=== PATIENT | female | born 1985 | race Caucasian/White ===

== ENCOUNTER 2018-09-21 05:26 | Emergency (ER) | payer OTHER ==
[2015-07-10 13:32] VITALS: Wt 104.3 kg
[~2018-09-21 05:26] MED LIST: IBUP800T37 PO; METH4TAB66 PO
[2018-09-21] MEDS ORDERED: NS(*) 0.9% 1000 ML BAG 1,000 ML IV ONE (05:41)
--- NOTE | 2018-09-21 05:41 | ER Report ---
History and Physical Time Seen By MD: 05:29 (RONNY ALLEN DO) HPI/ROS CHIEF COMPLAINT: Epigastric pain HISTORY OF PRESENT ILLNESS: 32-year-old female presents ambulatory to the ER complaining of severe epigastric pain with radiation to her back and her right shoulder since 2 AM. She notes that it was 8 out of 10. Patient was seen at urgent care 1 year ago with a similar pain and told she had gastroesophageal reflux disease. She was advised to try Zantac which she did without improvement. Patient's been having this pain intermittently for the last 2 years, usually occurs in the early a.m. hours, lasting several hours. He is a resolve spontaneously without treatment. Patient has vomited multiple times this morning prompted her to come to the ER. It is in from a 8/10 to a 6/10. Patient notes no alleviating or triggering factors. She notes nothing that seems to relieve it except waiting out. REVIEW OF SYSTEMS: Respiratory: No cough, no dyspnea. Cardiovascular: No chest pain, no palpitations. Gastrointestinal: As above Musculoskeletal: No back pain. (RONNY ALLEN DO) Allergies: Coded Allergies: No Known Drug Allergies (Unverified , 09/21/18) Home Meds Active Scripts Dicyclomine Hcl (DICYCLOMINE HCL) 20 Mg Tablet, 20 MG PO QID PRN for pain for 10 Days Prov:ENRIQUE COLE MD 09/21/18 Ondansetron (ZOFRAN ODT) 4 Mg Tab.rapdis, 4 MG PO Q6H PRN for NAUSEA/VOMITING, #20 TAB.CIARAN 0 Refills Prov:ENRIQUE COLE MD 09/21/18 Discontinued Scripts Methylprednisolone (METHYLPREDNISOLONE) 4 Mg Tab.ds.pk, 4 MG PO DIRECTED, #1 PACK Prov:BENEDICTO HENLEY JR, MD 10/08/17 Ibuprofen (IBUPROFEN) 800 Mg Tab, 800 MG PO Q8H PRN for PAIN, #30 TAB 0 Refills Prov:ARTHUR ODELL MD 07/12/15 Past Medical/Surgical History 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 (RONNY ALLEN DO) Reviewed Nurses Notes: Yes Old Medical Records Reviewed: Yes (RONNY ALLEN DO) Hx Smoking: No Smoking Status: Never Smoker Exposure to Second Hand Smoke?: No (RONNY ALLEN DO) Constitutional Vital Sign - Last 24 Hours 09/21/18 09/21/18 09/21/18 09/21/18 05:30 05:38 05:50 06:18 Temp 97.1 Pulse 64 Resp 16 B/P (MAP) 140/107 140/107 (118) 143/99 (114) Pulse Ox 95 O2 Delivery Room Air O2 Flow Rate 2.0 09/21/18 09/21/18 09/21/18 07:00 07:30 08:00 Pulse 66 53 68 Pulse Ox 99 100 98 Intake and Output 09/20/18 09/20/18 09/21/18 15:00 23:00 07:00 Intake Total 1000 ml Balance 1000 ml (ENRIQUE COLE MD) Physical Exam Vital signs stable, afebrile, pulse ox normal General Appearance: The patient is alert, has no immediate need for airway protection and no current signs of toxicity. Moderate distress Eyes: Pupils equal and round no injection. Respiratory: Chest is non tender, lungs are clear to auscultation. Cardiac: regular rate and rhythm Gastrointestinal: Abdomen is soft, moderate epigastric tenderness, no masses, bowel sounds normal. Musculoskeletal: Neck: Neck is supple and non tender. Extremities have full range of motion and are non tender. Skin: No rashes or lesions. DIFFERENTIAL DIAGNOSIS: After history and physical exam differential diagnosis was considered for abdominal pain including but not limited to appendicitis, cholecystitis, gastritis and urinary tract infection. (RONNY ALLEN DO) Medical Decision Making Data Points Result Diagram: 09/21/18 0600 09/21/18 0600 Laboratory Hematology Test 09/21/18 00:00 09/21/18 05:30 09/21/18 06:00 Urine HCG, Qualitative Negative (NEGATIVE) Urine Color Red Urine Clarity Cloudy Urine pH 5.0 pH (4.8-9.5) Urine Specific [place] 1.021 Urine Protein 30 mg/dL (NEGATIVE) Urine Glucose (UA) Negative mg/dL (NEGATIVE) Urine Ketones Negative mg/dL (NEGATIVE) Urine Blood Small (NEGATIVE) Urine Nitrite Negative (NEGATIVE) Urine Bilirubin Negative (NEGATIVE) Urine Urobilinogen Negative mg/dL (0.2-1.9) Urine Leukocyte Esterase Moderate (NEGATIVE) Urine RBC 6 /HPF (0-2/HPF) Urine WBC 37 /HPF (0-5/HPF) Urine Squamous Epithelial Cells Many /LPF (</=FEW) Urine Transitional Epithelial Cells Few /LPF (NONE-FEW) Urine Bacteria Few /HPF (NONE-FEW) Urine Hyaline Casts Few /LPF (NONE-FEW) Urine Mucus Few /HPF (NONE-FEW) Red Blood Count 5.49 M/uL (4.17-5.56) Mean Corpuscular Volume 84.1 fL (80.0-96.0) Mean Corpuscular Hemoglobin 28.3 pg (26.0-33.0) Mean Corpuscular Hemoglobin Concent 33.7 g/dL (32.0-36.0) Red Cell Distribution Width 13.5 % (11.5-14.5) Mean Platelet Volume 8.6 fL (7.2-11.1) Neutrophils (%) (Auto) 68.0 % (39.4-72.5) Lymphocytes (%) (Auto) 21.8 % (17.6-49.6) Monocytes (%) (Auto) 6.8 % (4.1-12.4) Eosinophils (%) (Auto) 2.8 % (0.4-6.7) Basophils (%) (Auto) 0.6 % (0.3-1.4) Nucleated RBC Relative Count (auto) 0.0 /100WBC Neutrophils # (Auto) 6.0 K/uL (2.0-7.4) Lymphocytes # (Auto) 1.9 K/uL (1.3-3.6) Monocytes # (Auto) 0.6 K/uL (0.3-1.0) Eosinophils # (Auto) 0.2 K/uL (0.0-0.5) Basophils # (Auto) 0.1 K/uL (0.0-0.1) Nucleated RBC Absolute Count (auto) 0.00 K/uL Sodium Level 141 mmol/L (137-145) Potassium Level 3.8 mmol/L (3.5-5.0) Chloride Level 104 mmol/L (98-107) Carbon Dioxide Level 26 mmol/L (22-31) Blood Urea Nitrogen 13 mg/dl (7-18) Creatinine 0.70 mg/dl (0.52-1.04) Glomerular Filtration Rate Calc > 60.0 Random Glucose 113 mg/dl (75-110) Calcium Level 9.9 mg/dl (8.4-10.2) Total Bilirubin 0.9 mg/dl (0.2-1.3) Aspartate Amino Transf (AST/SGOT) 29 U/L (0-35) Alanine Aminotransferase (ALT/SGPT) 27 U/L (0-56) Alkaline Phosphatase 90 U/L (0-126) Total Protein 8.6 g/dl (6.3-8.2) Albumin 4.5 g/dl (3.5-5.0) Amylase Level 73 U/L (0-110) Lipase 117 U/L (23-300) Chemistry Test 09/21/18 00:00 09/21/18 05:30 09/21/18 06:00 Urine HCG, Qualitative Negative (NEGATIVE) Urine Color Red Urine Clarity Cloudy Urine pH 5.0 pH (4.8-9.5) Urine Specific [place] 1.021 Urine Protein 30 mg/dL (NEGATIVE) Urine Glucose (UA) Negative mg/dL (NEGATIVE) Urine Ketones Negative mg/dL (NEGATIVE) Urine Blood Small (NEGATIVE) Urine Nitrite Negative (NEGATIVE) Urine Bilirubin Negative (NEGATIVE) Urine Urobilinogen Negative mg/dL (0.2-1.9) Urine Leukocyte Esterase Moderate (NEGATIVE) Urine RBC 6 /HPF (0-2/HPF) Urine WBC 37 /HPF (0-5/HPF) Urine Squamous Epithelial Cells Many /LPF (</=FEW) Urine Transitional Epithelial Cells Few /LPF (NONE-FEW) Urine Bacteria Few /HPF (NONE-FEW) Urine Hyaline Casts Few /LPF (NONE-FEW) Urine Mucus Few /HPF (NONE-FEW) White Blood Count 8.8 k/uL (4.5-11.0) Red Blood Count 5.49 M/uL (4.17-5.56) Hemoglobin 15.5 g/dL (12.0-16.0) Hematocrit 46.2 % (34.0-47.0) Mean Corpuscular Volume 84.1 fL (80.0-96.0) Mean Corpuscular Hemoglobin 28.3 pg (26.0-33.0) Mean Corpuscular Hemoglobin Concent 33.7 g/dL (32.0-36.0) Red Cell Distribution Width 13.5 % (11.5-14.5) Platelet Count 343 K/uL (150-450) Mean Platelet Volume 8.6 fL (7.2-11.1) Neutrophils (%) (Auto) 68.0 % (39.4-72.5) Lymphocytes (%) (Auto) 21.8 % (17.6-49.6) Monocytes (%) (Auto) 6.8 % (4.1-12.4) Eosinophils (%) (Auto) 2.8 % (0.4-6.7) Basophils (%) (Auto) 0.6 % (0.3-1.4) Nucleated RBC Relative Count (auto) 0.0 /100WBC Neutrophils # (Auto) 6.0 K/uL (2.0-7.4) Lymphocytes # (Auto) 1.9 K/uL (1.3-3.6) Monocytes # (Auto) 0.6 K/uL (0.3-1.0) Eosinophils # (Auto) 0.2 K/uL (0.0-0.5) Basophils # (Auto) 0.1 K/uL (0.0-0.1) Nucleated RBC Absolute Count (auto) 0.00 K/uL Glomerular Filtration Rate Calc > 60.0 Calcium Level 9.9 mg/dl (8.4-10.2) Total Bilirubin 0.9 mg/dl (0.2-1.3) Aspartate Amino Transf (AST/SGOT) 29 U/L (0-35) Alanine Aminotransferase (ALT/SGPT) 27 U/L (0-56) Alkaline Phosphatase 90 U/L (0-126) Total Protein 8.6 g/dl (6.3-8.2) Albumin 4.5 g/dl (3.5-5.0) Amylase Level 73 U/L (0-110) Lipase 117 U/L (23-300) Urinalysis Test 09/21/18 00:00 09/21/18 05:30 Urine HCG, Qualitative Negative (NEGATIVE) Urine Color Red Urine Clarity Cloudy Urine pH 5.0 pH (4.8-9.5) Urine Specific [place] 1.021 Urine Protein 30 mg/dL (NEGATIVE) Urine Glucose (UA) Negative mg/dL (NEGATIVE) Urine Ketones Negative mg/dL (NEGATIVE) Urine Blood Small (NEGATIVE) Urine Nitrite Negative (NEGATIVE) Urine Bilirubin Negative (NEGATIVE) Urine Urobilinogen Negative mg/dL (0.2-1.9) Urine Leukocyte Esterase Moderate (NEGATIVE) Urine RBC 6 /HPF (0-2/HPF) Urine WBC 37 /HPF (0-5/HPF) Urine Squamous Epithelial Cells Many /LPF (</=FEW) Urine Transitional Epithelial Cells Few /LPF (NONE-FEW) Urine Bacteria Few /HPF (NONE-FEW) Urine Hyaline Casts Few /LPF (NONE-FEW) Urine Mucus Few /HPF (NONE-FEW) (ENRIQUE COLE MD) EKG/Imaging Imaging Results: Ultrasound of the gallbladder was obtained. The results of the study are Technique: GALLBLADDER HISTORY: RUQ pain to back r/o GB ds Comparison: None Technique: Multiple grayscale, color and Doppler sonographic images were obtained for an ultrasound of the right upper quadrant. Findings: The liver measures 14.3 cm. Overall, there is increased echotexture throughout the hepatic parenchyma. There is normal hepatopedal portal venous flow. Gallbladder wall thickness is 2 mm with calculi within the gallbladder lumen. Negative sonographic Vu's sign reported by the technologist. Common duct measures 4 mm in maximum diameter with no evidence of shadowing stone. Imaged portions of the pancreas are unremarkable. Abdominal aorta and IVC are patent and unremarkable. The right kidney is normal in size, contour, and echotexture measuring 10.5 cm x 4.6 cm x 6.0 cm. IMPRESSION: 1. Cholelithiasis without sonographic evidence of acute cholecystitis. 2. Increased echotexture throughout the hepatic parenchyma most commonly seen with hepatic steatosis. The study was read by the radiologist. I viewed the images myself on the PACS system. (RONNY ALLEN DO) ED Course/Re-evaluation Clinical Indication for ER IV: Hydration, IV Access ED Course Patient was admitted to an examination room. H&P was done. The differential diagnoses was considered. Patient was treated for her pain and hydrated. Diagnostic studies show pyuria. A gallbladder ultrasound was ordered. Care was turned over to at shift change. Decision to Disposition Date: Sep 21, 2018 Decision to Disposition Time: 08:08 (RONNY ALLEN DO) ED Course Presents the emergency department with nausea and right upper quadrant pain. Symptom-free after hours in the emergency department. Labs including LFTs and lipase within normal limits. No fever and no leukocytosis. Right upper quadrant ultrasound consistent with cholelithiasis. No evidence of cholecystitis or choledocholithiasis. We will give her a prescription for Bentyl and Zofran. We will also have her follow-up with Dr. Martinez to discuss possibility of elective cholecystectomy. Decision to Disposition Date: Sep 21, 2018 Decision to Disposition Time: 08:55 (ENRIQUE COLE MD) Depart Departure Latest Vital Signs Vital Signs Date Time Temp Pulse Resp B/P (MAP) Pulse Ox O2 Delivery O2 Flow Rate FiO2 09/21/18 08:00 68 98 09/21/18 06:18 2.0 09/21/18 05:50 143/99 (114) 09/21/18 05:30 97.1 16 Room Air (ENRIQUE COLE MD) Impression: Primary Impression: Cholelithiasis Condition: Improved Disposition: HOME OR SELF-CARE Referrals: SWATI ESTES MD New Scripts Dicyclomine Hcl (DICYCLOMINE HCL) 20 Mg Tablet 20 MG PO QID PRN for pain for 10 Days Prov: ENRIQUE COLE MD 09/21/18 Ondansetron (ZOFRAN ODT) 4 Mg Tab.rapdis 4 MG PO Q6H PRN for NAUSEA/VOMITING, #20 TAB.CIARAN 0 Refills Prov: ENRIQUE COLE MD 09/21/18 Patient Instructions: Gallstones (ED) Problem Qualifiers Primary Impression: Cholelithiasis Cholelithiasis location: gallbladder Cholecystitis presence: without cholecystitis Biliary obstruction: without biliary obstruction Qualified Codes: K80.20 - Calculus of gallbladder without cholecystitis without obstruction RONNY ALLEN DO Sep 21, 2018 05:41 ENRIQUE COLE MD Sep 21, 2018 09:02
[2018-09-21] MEDS ORDERED: fentaNYL CITR 100 MCG/2 ML AMP IVP ONE (05:45)
[2018-09-21] MEDS ORDERED: ONDANSETRON 4 MG/2 ML VIAL IVP ONE (05:45)
[2018-09-21 05:50] VITALS: BP 143/99
[2018-09-21 06:24] LABS: PLATELET COUNT, AUTOMATED 343 K/uL (150-450)
[2018-09-21] MEDS ORDERED: MORPHINE 2 MG/ML SYR IVP ONE (06:25)
--- NOTE | 2018-09-21 08:04 | RADIOLOGY IMAGING REPORT ---
FACILITY: [facility] - [place] PATIENT NAME: Jayleen Corona : 1985 MR: [id number] V: [id number] EXAM DATE: ORDERING PHYSICIAN: RONNY ALLEN TECHNOLOGIST: Location: [facility] - [place] Patient: Jayleen Corona : 1985 Visit/Account:[id number] Date of Sevice: 09/21/2018 Technique: GALLBLADDER HISTORY: RUQ pain to back r/o GB ds Comparison: None Technique: Multiple grayscale, color and Doppler sonographic images were obtained for an ultrasound o f the right upper quadrant. Findings: The liver measures 14.3 cm. Overall, there is increased echotexture throughout the hepatic parenchyma . There is normal hepatopedal portal venous flow. Gallbladder wall thickness is 2 mm with calculi within the gallbladder lumen. Negative sonographic Mu rphy's sign reported by the technologist. Common duct measures 4 mm in maximum diameter with no evidence of shadowing stone. Imaged portions of the pancreas are unremarkable. Abdominal aorta and IVC are patent and unremarkable. The right kidney is normal in size, contour, and echotexture measuring 10.5 cm x 4.6 cm x 6.0 cm. IMPRESSION: 1. Cholelithiasis without sonographic evidence of acute cholecystitis. 2. Increased echotexture throughout the hepatic parenchyma most commonly seen with hepatic steatosis. Report Dictated By: Agapito Gallego DO at 09/21/2018 7:58 AM Report E-Signed By: Agapito Gallego DO at 09/21/2018 8:01 AM WSN:[id number]
[2018-09-21] MEDS ORDERED: ONDA4TAB PO (08:58)
[2018-09-21] MEDS ORDERED: DICY20TA70 PO (08:58)
== END 2018-09-21 09:08 | disposition home or self-care (01) ==
LOC: ER 05:38
DX: K80.20 Calculus of gallbladder without cholecystitis without obstruction (principal)
CPT/HCPCS: 76705; 81001; 81025; 82150; 83690; 85025; 96361; 96374; 96375; 99284; J2270; J2405; J3010; J7030; 82040; 82247; 82310; 82374; 82435; 82565; 82947; 84075; 84132; 84155; 84295; 84450; 84460; 84520

== ENCOUNTER 2018-09-23 03:28 | Observation (INO) | payer OTHER ==
[2018-09-23] VITALS (9 sets, daily range): BP systolic 100–139; BP diastolic 72–101
[~2018-09-23] VITALS: Ht 157.5 cm; Wt 104.3 kg
[~2018-09-23 03:28] MED LIST changes: +DICY20TA70 PO; +ONDA4TAB PO
--- NOTE | 2018-09-23 03:47 | ER Report ---
History and Physical Time Seen By MD: 03:47 Hx. of Stated Complaint: PT REPORTS PAIN MEDICINE FOR GALL STONES IS NOT WORKING. HPI/ROS CHIEF COMPLAINT: right upper abdominal pain, gallstones HISTORY OF PRESENT ILLNESS: This is a 32 year old female. She had been seen 2 days ago and diagnosed with gallstones and was home on pain medicines, but tonight the pain has worsened and the pain medicines are not effective. She is having right upper quadrant pain, radiation to epigastric/chest area and her back. Associated nausea and vomiting. She denies fevers or chills. No shortness of breath, although sometimes the pain takes her breath away. No problems with bowel or bladder. Allergies: Coded Allergies: No Known Drug Allergies (Unverified , 09/23/18) Home Meds Active Scripts Dicyclomine Hcl (DICYCLOMINE HCL) 20 Mg Tablet, 20 MG PO QID PRN for pain for 10 Days Prov:ENRIQUE COLE MD 09/21/18 Ondansetron (ZOFRAN ODT) 4 Mg Tab.rapdis, 4 MG PO Q6H PRN for NAUSEA/VOMITING, #20 TAB.CIARAN 0 Refills Prov:ENRIQUE COLE MD 09/21/18 Discontinued Scripts Methylprednisolone (METHYLPREDNISOLONE) 4 Mg Tab.ds.pk, 4 MG PO DIRECTED, #1 PACK Prov:BENEDICTO HENLEY JR, MD 10/08/17 Ibuprofen (IBUPROFEN) 800 Mg Tab, 800 MG PO Q8H PRN for PAIN, #30 TAB 0 Refills Prov:ARTHUR ODELL MD 07/12/15 Reviewed Nurses Notes: Yes Hx Smoking: No Smoking Status: Never Smoker Exposure to Second Hand Smoke?: No Hx Substance Use Disorder: No Hx Alcohol Use: No Constitutional Vital Sign - Last 24 Hours 09/23/18 09/23/18 09/23/18 09/23/18 03:36 03:37 03:43 04:18 Temp 97.6 Pulse 63 55 74 Resp 18 B/P (MAP) 139/103 (115) 139/103 Pulse Ox 95 92 92 O2 Delivery Room Air 09/23/18 09/23/18 09/23/18 04:30 04:33 04:38 Pulse 73 75 B/P (MAP) 132/83 (99) Pulse Ox 88 93 Physical Exam General Appearance: The patient is alert. Acute distress due to pain. Eyes: Pupils are equal, round. No pallor, injection or icterus. ENT: Mucous membranes are moist. Normal oral mucosa. Neck: Supple and non tender. Respiratory: Lungs are clear to auscultation. Cardiovascular: Regular rate and rhythm. No murmurs, gallops or rubs. Gastrointestinal: Abdomen is soft, but tender in right upper with Vu's sign. Nondistended, but obese abdomen. Guarding but without rebound. No masses or organomegaly. Normal active bowel sounds. No costovertebral angle tenderness with percussion. Neurological: Alert and oriented x3. No focal neurologic deficits Skin: Warm and dry. Musculoskeletal: No tenderness in palpation of the cervical, thoracic and lumbar spine. DIFFERENTIAL DIAGNOSIS: After history and physical exam, differential diagnosis was considered for gallstones with increased pain tonight, but no fever or chills. Will repeat labs and consider if we need repeat imaging. Medical Decision Making Data Points Result Diagram: 09/23/18 0343 09/23/18 0343 Laboratory Hematology Test 09/23/18 03:32 09/23/18 03:43 Urine Color Yellow Urine Clarity Slightly-cloudy Urine pH 7.0 pH (4.8-9.5) Urine Specific [place] 1.017 Urine Protein Negative mg/dL (NEGATIVE) Urine Glucose (UA) Negative mg/dL (NEGATIVE) Urine Ketones Negative mg/dL (NEGATIVE) Urine Blood Negative (NEGATIVE) Urine Nitrite Negative (NEGATIVE) Urine Bilirubin Negative (NEGATIVE) Urine Urobilinogen Negative mg/dL (0.2-1.9) Urine Leukocyte Esterase Small (NEGATIVE) Urine RBC 2 /HPF (0-2/HPF) Urine WBC 14 /HPF (0-5/HPF) Urine Squamous Epithelial Cells Many /LPF (</=FEW) Urine Transitional Epithelial Cells Few /LPF (NONE-FEW) Urine Bacteria Few /HPF (NONE-FEW) Urine Mucus Few /HPF (NONE-FEW) Red Blood Count 5.29 M/uL (4.17-5.56) Mean Corpuscular Volume 83.8 fL (80.0-96.0) Mean Corpuscular Hemoglobin 28.1 pg (26.0-33.0) Mean Corpuscular Hemoglobin Concent 33.6 g/dL (32.0-36.0) Red Cell Distribution Width 13.4 % (11.5-14.5) Mean Platelet Volume 8.8 fL (7.2-11.1) Neutrophils (%) (Auto) 75.4 % (39.4-72.5) Lymphocytes (%) (Auto) 17.0 % (17.6-49.6) Monocytes (%) (Auto) 4.9 % (4.1-12.4) Eosinophils (%) (Auto) 1.9 % (0.4-6.7) Basophils (%) (Auto) 0.8 % (0.3-1.4) Nucleated RBC Relative Count (auto) 0.0 /100WBC Neutrophils # (Auto) 8.8 K/uL (2.0-7.4) Lymphocytes # (Auto) 2.0 K/uL (1.3-3.6) Monocytes # (Auto) 0.6 K/uL (0.3-1.0) Eosinophils # (Auto) 0.2 K/uL (0.0-0.5) Basophils # (Auto) 0.1 K/uL (0.0-0.1) Nucleated RBC Absolute Count (auto) 0.00 K/uL Sodium Level 141 mmol/L (137-145) Potassium Level 3.7 mmol/L (3.5-5.0) Chloride Level 101 mmol/L (98-107) Carbon Dioxide Level 28 mmol/L (22-31) Blood Urea Nitrogen 15 mg/dl (7-18) Creatinine 1.00 mg/dl (0.52-1.04) Glomerular Filtration Rate Calc > 60.0 Random Glucose 128 mg/dl (75-110) Calcium Level 9.4 mg/dl (8.4-10.2) Total Bilirubin 0.7 mg/dl (0.2-1.3) Aspartate Amino Transf (AST/SGOT) 27 U/L (0-35) Alanine Aminotransferase (ALT/SGPT) 26 U/L (0-56) Alkaline Phosphatase 88 U/L (0-126) Total Protein 8.2 g/dl (6.3-8.2) Albumin 4.4 g/dl (3.5-5.0) Amylase Level 82 U/L (0-110) Lipase 156 U/L (23-300) Chemistry Test 09/23/18 03:32 09/23/18 03:43 Urine Color Yellow Urine Clarity Slightly-cloudy Urine pH 7.0 pH (4.8-9.5) Urine Specific [place] 1.017 Urine Protein Negative mg/dL (NEGATIVE) Urine Glucose (UA) Negative mg/dL (NEGATIVE) Urine Ketones Negative mg/dL (NEGATIVE) Urine Blood Negative (NEGATIVE) Urine Nitrite Negative (NEGATIVE) Urine Bilirubin Negative (NEGATIVE) Urine Urobilinogen Negative mg/dL (0.2-1.9) Urine Leukocyte Esterase Small (NEGATIVE) Urine RBC 2 /HPF (0-2/HPF) Urine WBC 14 /HPF (0-5/HPF) Urine Squamous Epithelial Cells Many /LPF (</=FEW) Urine Transitional Epithelial Cells Few /LPF (NONE-FEW) Urine Bacteria Few /HPF (NONE-FEW) Urine Mucus Few /HPF (NONE-FEW) White Blood Count 11.7 k/uL (4.5-11.0) Red Blood Count 5.29 M/uL (4.17-5.56) Hemoglobin 14.9 g/dL (12.0-16.0) Hematocrit 44.3 % (34.0-47.0) Mean Corpuscular Volume 83.8 fL (80.0-96.0) Mean Corpuscular Hemoglobin 28.1 pg (26.0-33.0) Mean Corpuscular Hemoglobin Concent 33.6 g/dL (32.0-36.0) Red Cell Distribution Width 13.4 % (11.5-14.5) Platelet Count 335 K/uL (150-450) Mean Platelet Volume 8.8 fL (7.2-11.1) Neutrophils (%) (Auto) 75.4 % (39.4-72.5) Lymphocytes (%) (Auto) 17.0 % (17.6-49.6) Monocytes (%) (Auto) 4.9 % (4.1-12.4) Eosinophils (%) (Auto) 1.9 % (0.4-6.7) Basophils (%) (Auto) 0.8 % (0.3-1.4) Nucleated RBC Relative Count (auto) 0.0 /100WBC Neutrophils # (Auto) 8.8 K/uL (2.0-7.4) Lymphocytes # (Auto) 2.0 K/uL (1.3-3.6) Monocytes # (Auto) 0.6 K/uL (0.3-1.0) Eosinophils # (Auto) 0.2 K/uL (0.0-0.5) Basophils # (Auto) 0.1 K/uL (0.0-0.1) Nucleated RBC Absolute Count (auto) 0.00 K/uL Glomerular Filtration Rate Calc > 60.0 Calcium Level 9.4 mg/dl (8.4-10.2) Total Bilirubin 0.7 mg/dl (0.2-1.3) Aspartate Amino Transf (AST/SGOT) 27 U/L (0-35) Alanine Aminotransferase (ALT/SGPT) 26 U/L (0-56) Alkaline Phosphatase 88 U/L (0-126) Total Protein 8.2 g/dl (6.3-8.2) Albumin 4.4 g/dl (3.5-5.0) Amylase Level 82 U/L (0-110) Lipase 156 U/L (23-300) Urinalysis Test 09/23/18 03:32 Urine Color Yellow Urine Clarity Slightly-cloudy Urine pH 7.0 pH (4.8-9.5) Urine Specific [place] 1.017 Urine Protein Negative mg/dL (NEGATIVE) Urine Glucose (UA) Negative mg/dL (NEGATIVE) Urine Ketones Negative mg/dL (NEGATIVE) Urine Blood Negative (NEGATIVE) Urine Nitrite Negative (NEGATIVE) Urine Bilirubin Negative (NEGATIVE) Urine Urobilinogen Negative mg/dL (0.2-1.9) Urine Leukocyte Esterase Small (NEGATIVE) Urine RBC 2 /HPF (0-2/HPF) Urine WBC 14 /HPF (0-5/HPF) Urine Squamous Epithelial Cells Many /LPF (</=FEW) Urine Transitional Epithelial Cells Few /LPF (NONE-FEW) Urine Bacteria Few /HPF (NONE-FEW) Urine Mucus Few /HPF (NONE-FEW) ED Course/Re-evaluation Clinical Indication for ER IV: Hydration, IV Access ED Course Reviewed last visits ultrasound results, cholelithiasis without signs of cholecystitis and no sign of stone in the duct. She had repeat labs with slight increase in white count, but negative liver function tests and amylase and lipase. She received Morphine 4mg IV with mild improvement in pain, as well as Z ofran 4mg IV with some improvement in nausea as well. Discussed case with Dr. Hartmann. We will admit and get her pain better controlled. Dr. Hartmann will fit her into the surgery schedule for today. Decision to Disposition Date: Sep 23, 2018 Decision to Disposition Time: 04:35 Depart Departure Latest Vital Signs Vital Signs Date Time Temp Pulse Resp B/P (MAP) Pulse Ox O2 Delivery O2 Flow Rate FiO2 09/23/18 04:38 75 93 09/23/18 04:30 132/83 (99) 09/23/18 03:37 97.6 18 Room Air Impression: Primary Impression: Cholelithiasis Condition: Improved Disposition: Admitted from ER Problem Qualifiers Primary Impression: Cholelithiasis Cholelithiasis location: gallbladder Cholecystitis presence: without cholecystitis Biliary obstruction: without biliary obstruction Qualified Codes: K80.20 - Calculus of gallbladder without cholecystitis without obstruction SHREE CHACON MD Sep 23, 2018 03:47
[2018-09-23] MEDS ORDERED: MORPHINE 4 MG/ML SDV IVP ONE (03:55)
[2018-09-23] MEDS ORDERED: ONDANSETRON 4 MG/2 ML VIAL IVP ONE (03:55)
[2018-09-23] MEDS ORDERED: NS(*) 0.9% 1000 ML BAG 1,000 ML IV ONE (03:55)
[2018-09-23 04:13] LABS: PLATELET COUNT, AUTOMATED 335 K/uL (150-450)
[2018-09-23] MEDS ORDERED: HYDROMORPHONE HCL 1 MG/ML SYRINGE IVP ONE (04:40)
[2018-09-23] MEDS ORDERED: LACT1CAP6 PO (05:55)
[2018-09-23] MEDS ORDERED: NS(*) 0.9% 1000 ML BAG 1,000 ML IV PRN (07:14)
[2018-09-23] MEDS ORDERED: FLUSH 10 ML SYR IVP PRN (07:15)
[2018-09-23] MEDS ORDERED: ONDANSETRON 4 MG/2 ML VIAL IVP PRN (07:15)
[2018-09-23] MEDS ORDERED: HYDROmorphone HCL 2 MG/ML SDV IVP PRN (07:15)
--- NOTE | 2018-09-23 07:24 | Gen Surgery History & Physical ---
History of Present Illness Chief Complaint RUQ abdominal pain History of Present Illness 32yo female presents with RUQ pain. Had episode 2 days ago prompting her to come in to the ER and RUQ U/S revealed gallstones but no signs of infection and WBC normal and pain resolved so she was d/pippa to home. Her pain recurred last night so she came back in but her pain was unremitting so she was recommended for admission. She's had RUQ pain on/off for over 2 years. Becoming more frequent and severe. Has had N/V but no F/C, jaundice, choleuria, or steatorrhea. Pain has improved after admission and after IV pain meds. No previous abdominal surgery. History Problems: (1) Obesity, Class III, BMI 40-49.9 (morbid obesity) Status: Chronic (2) DM2 (diabetes mellitus, type 2) Status: Chronic Home Meds Active Scripts Dicyclomine Hcl (DICYCLOMINE HCL) 20 Mg Tablet, 20 MG PO QID PRN for pain for 10 Days Prov:ENRIQUE COLE MD 09/21/18 Ondansetron (ZOFRAN ODT) 4 Mg Tab.rapdis, 4 MG PO Q6H PRN for NAUSEA/VOMITING, #20 TAB.CIARAN 0 Refills Prov:ENRIQUE COLE MD 09/21/18 Reported Medications Lactobacillus Combination No.4 (PROBIOTIC) 1 Each Capsule, 1 EACH PO DAILY, CAPSULE 09/23/18 Discontinued Scripts Methylprednisolone (METHYLPREDNISOLONE) 4 Mg Tab.ds.pk, 4 MG PO DIRECTED, #1 PACK Prov:BENEDICTO HENLEY JR, MD 10/08/17 Ibuprofen (IBUPROFEN) 800 Mg Tab, 800 MG PO Q8H PRN for PAIN, #30 TAB 0 Refills Prov:ARTHUR ODELL MD 07/12/15 Allergies: Coded Allergies: No Known Drug Allergies (Unverified , 09/23/18) Patient History: FH: heart disease FATHER, , Age:64 FH: liver disease MOTHER, , Age:42 FH: lupus FATHER, , Age:64 FH: pancreatic disease MOTHER, , Age:42 Porphyria MOTHER, , Age:42 Review of Systems All Systems Reviewed/Normal: Yes, Except as Noted Gastrointestinal: Nausea, Vomiting, Abdominal Pain Exam General Appearance: Alert, Awake, No Acute Distress, Afebrile Neuro: No Gross deficits Eyes: PERRLA GI: Abd Soft and Non-Tender Extremities: Warm, Perfused Psych: Alert & Oriented X3, Appropriate Mood & Affect Medical Decision Making Data Points Result Diagram: 09/23/1834209/23/18342 Assessment and Plan Problems: (1) Cholelithiasis Status: Acute Assessment & Plan: 09/23/18: Admit, clear diet this morning, NPO after 11:00 this morning in preparation for lap brittney this evening. Start IV abx, IV fluids, IV pain and nausea meds. I have explained this plan as well as cholecystectomy with the patient in great detail along with alternatives, risks, expected recovery and her questions have been answered. Pt seems to understand this discussion and she would like to proceed with surgery. (2) Obesity, Class III, BMI 40-49.9 (morbid obesity) Status: Chronic (3) DM2 (diabetes mellitus, type 2) Status: Chronic Condition Stable. Time Spent: < 30 min Venous Thromboembolism VTE Risk Physician Assess for VTE Risk: Yes Patient's VTE Risk: Low VTE Diagnostic Test 2 Days Prior to Admit: No Antithrombotics Is Pt On Any Antithrombotics?: No Problem Qualifiers (1) Cholelithiasis: Cholelithiasis location: gallbladder Cholecystitis presence: without cholecystitis Biliary obstruction: without biliary obstruction Qualified Codes: K80.20 - Calculus of gallbladder without cholecystitis without obstruction (2) DM2 (diabetes mellitus, type 2): Diabetes mellitus half-way insulin use: without half-way use Diabetes mellitus complication status: without complication Qualified Codes: E11.9 - Type 2 diabetes mellitus without complications SWATI ESTES MD Sep 23, 2018 07:24
[2018-09-23] MEDS ORDERED: PANTOPRAZOLE SOD 40 MG IV VIAL IVP SCH (09:00)
[2018-09-23] MEDS: PIPERACILLIN/TAZO*3.375GM VIAL 3.375 GM in NS(*) 0.9% 100 ML ADDVANT BAG 100 ML IVPB SCH ×3 (09:23→22:46)
[2018-09-23] MEDS ORDERED: SCOPOLAMINE 1.5 MG PATCH TD ONE (17:05)
[2018-09-23] MEDS ORDERED: fentaNYL CITR 250 MCG/5 ML AMP ONE (17:36)
[2018-09-23] MEDS ORDERED: ONDANSETRON 4 MG/2 ML VIAL ONE (17:37)
[2018-09-23] MEDS ORDERED: LIDOCAINE MPF 1% 5 ML VIAL ONE (17:37)
[2018-09-23] MEDS ORDERED: DEXAMETHASONE SOD PHOS 10MG/ML ONE (17:37)
[2018-09-23] MEDS ORDERED: PROPOFOL EMUL(*) 10MG/ML 20 ML 20 ML ONE ×2 (17:37→18:02)
[2018-09-23] MEDS ORDERED: NORMOSOL R SOLN(*) 1000 ML BAG 1,000 ML IV PRN (18:00)
[2018-09-23] MEDS ORDERED: KETAMINE HCL 200 MG/20 ML MDV ONE (18:04)
[2018-09-23] MEDS ORDERED: SUGAMMADEX SOD 500 MG/5 ML SDV ONE (18:13)
[2018-09-23] MEDS ORDERED: PIPERACILLIN/TAZO*3.375GM VIAL 3.375 GM in NS(*) 0.9% 100 ML ADDVANT BAG 100 ML IVPB ONE (18:30)
[2018-09-23] MEDS ORDERED: MIDAZOLAM 2 MG/2 ML VIAL IVP PRN (18:35)
[2018-09-23] MEDS ORDERED: IOPAMIDOL 61% 100 ML INFUS BTL 0 ML ONE (18:46)
[2018-09-23] MEDS ORDERED: INDOCYANINE GREEN 25 MG VIAL IVP ONE (18:55)
[2018-09-23] MEDS ORDERED: PHENYLEPHRINE 10 MG/1 ML VIAL ONE (19:41)
[2018-09-23] MEDS ORDERED: ROCURONIUM BROM 10 MG/ML 10 ML ONE (20:15)
[2018-09-23] MEDS ORDERED: VASOPRESSIN 20 UNIT/ML VIAL ONE (20:15)
--- NOTE | 2018-09-23 20:58 | Post Operative Progress Note ---
Post Operative Progress Note Date: Sep 23, 2018 Time: 20:52 Surgeon: Mary Kate Dictation number: [id number] Anesthesia: GETA by Dr. Alicea Pre-Op Diagnosis: Acute cholecystitis Post-Op Diagnosis: FARIBA Findings: Acutely inflamed gallbladder Procedure(s): Robotic cholecystectomy Specimen Removed:(May be N/A): GB and contents Complications: None Fluids: See anesthesia record Estimated Blood Loss: Minimal Date OP Note Dictated: Sep 23, 2018 Time OP Note Dictated: 20:53 SWATI ESTES MD Sep 23, 2018 20:58
[2018-09-23] MEDS: DOCUSATE SODIUM 100 MG CAP PO SCH (21:00)
[2018-09-24] VITALS (9 sets, daily range): BP systolic 95–121; BP diastolic 60–89; Ht 157.5 cm; Wt 104.3 kg
[2018-09-24] MEDS: PIPERACILLIN/TAZO*3.375GM VIAL 3.375 GM in NS(*) 0.9% 100 ML ADDVANT BAG 100 ML IVPB SCH ×2 (03:47→10:16)
[2018-09-24] MEDS ORDERED: PER PO (05:34)
[2018-09-24] MEDS ORDERED: DOCU-202 PO (05:34)
[2018-09-24] MEDS: DOCUSATE SODIUM 100 MG CAP PO SCH (08:44)
[2018-09-24] MEDS ORDERED: PANTOPRAZOLE SOD 40 MG TABEC PO SCH (09:00)
--- NOTE | 2018-09-24 10:30 | OPERATIVE REPORT 1 ---
EVENT DATE: September 23, 2018 SURGEON: Harshil Hartmann M.D. ANESTHESIOLOGIST: Wander Alicea MD ANESTHESIA: General endotracheal. PREOPERATIVE DIAGNOSIS Acute cholecystitis. POSTOPERATIVE DIAGNOSIS Acute cholecystitis. PROCEDURE PERFORMED Robotic cholecystectomy. PROCEDURE Robotic cholecystectomy. COMPLICATIONS None. CONDITION Stable. ESTIMATED BLOOD LOSS Minimal. FINDINGS This patient's gallbladder was acutely inflamed. INDICATIONS This is a 32-year-old female who presented to the emergency room with repeated recurrent unremitting right upper quadrant abdominal pain. She has had intermittent abdominal pain over the last year or two but it has been getting progressively worse and more frequent and severe. In the emergency room, her pain was not really very controllable. She had an ultrasound two days ago, which revealed gallstone. I admitted her for pain control and consented her for robotic cholecystectomy. PROCEDURE The patient was brought into the operating room and placed supine on the operating table. General endotracheal anesthesia was administered and her abdomen was prepped and draped in the sterile fashion. A time-out was completed. I injected the infraumbilical skin with 0.5% ropivacaine plain. I made a curvilinear smiley face type incision and dissected through the dermis and into the subcutaneous fat. I identified the midline fascia. I made a vertical incision in the midline fascia, grasped the fascial edges with Karen clamps and then bluntly entered the peritoneal cavity with my finger. I placed two interrupted 0 Vicryl sutures transversely through the vertical defect and inserted a 12 mm Riojas type robotic port into this wound and secured into place with suture. I insufflated the abdomen to a pressure of 15 mmHg and inserted the robotic camera into the patient's abdomen. Under direct visualization, I placed an 8 mm port in the right mid abdomen and two 8 mm ports, one in the left anterior axillary line in the subcostal space and then one residential between the umbilicus and the left upper quadrant port. The patient was placed in Trendelenburg and planed towards to her left and the bed was lowered as low as it would go and the robot was brought in, docked and targeted. In inserted all the instruments and then scrubbed out and went to the console. I then grasped the fundus of the gallbladder and retracted towards the patient's right shoulder and there were adhesions of omentum to the gallbladder, quite a bit of adhesions in fact, from the mid body of the gallbladder all the way down around the infundibulum. I took these down sequentially with hook electrocautery and did this safely while identifying the duodenum and safely keeping the duodenum out of the way. After this was completed, the infundibulum was identified and I used the hook to divide the peritoneum over the infundibulum in both the medial and lateral aspects of the gallbladder. I sequentially dissected down off the infundibulum and used FireFly intermittently to identify the cystic duct as well as the common bile duct and then dissected around the cystic duct as well as the artery, which was just posterior to the cystic duct. After these were cleaned off, I used the FireFly to confirm I was in the cystic duct and well away from the common duct. I used the clip glass crusher and clipped the artery proximally and distally and clipped the duct at the cystic junction distally and then three clips proximally on the cystic duct but well away from the common duct. I then divided the duct and artery between the clips and then divided the posterior attachments of the gallbladder and from the gallbladder fossa using hook all the way up. I then irrigated and dried the right upper quadrant and there was some oozing from the gallbladder fossa, which I controlled with electrocautery and then placed Johnny hemostatic powder into the gallbladder fossa. I irrigated and dried the right upper quadrant and removed all the irrigation fluid from over the liver and from the gallbladder fossa. I placed the gallbladder in a surgical specimen retrieval bag and removed from the abdomen through the umbilical port site. Happy with how everything looked, all of the robotic instruments were removed. The robot was undocked. I took a quick peek once I scrubbed back in and everything looked great so I removed the camera, desufflated the abdomen and removed all the ports and then closed the umbilical fascia with figure-of-8 0 Vicryl suture and closed the skin in each port site with 4-0 Monocryl over subcuticular suture. The skin was cleaned and dried and steri-strips applied followed by sterile surgical dressings. The patient was awakened and extubated in the operating room and transferred to the recovery room in stable condition, having tolerated the procedure without any apparent problems. LEONARDO
== END 2018-09-24 12:56 | disposition home or self-care (01) ==
LOC: ER 04:14 → MED 04:47 → INTOOBSV 04:47 → MED 04:47 → UNDOADMOB 04:47
PROVIDERS: ADMIT Surgery; ATTEND Surgery
DX: K80.20 Calculus of gallbladder without cholecystitis without obstruction (principal)
CPT/HCPCS: 47562; 81001; 81025; 82150; 83690; 85025; 88304; 96361; 96372; 96374; 96375; 99284; C9113; G0378; J1100; J1170; J2001; J2250; J2270; J2370; J2405; J2543; J2704; J3010; J3490; J7030; J7050; S2900; 82040; 82247; 82310; 82374; 82435; 82565; 82947; 84075; 84132; 84155; 84295; 84450; 84460; 84520; Q9967